=== PATIENT | female | born 1960 | race Caucasian/White ===

== ENCOUNTER 2023-04-16 15:04 | Emergency (ER) | payer OTHER ==
[~2023-04-16] VITALS: Ht 162.6 cm; Wt 71.2 kg
[~2023-04-16 15:04] MED LIST: FURO-572 PO
[2023-04-16 15:28] VITALS: BP 129/76; PULSE 97; RESP 18; TEMP 98.1; O2SAT 97
--- NOTE | 2023-04-16 15:53 | NUR ---
Pt placed in bed 8. evaluated pt at BS. MD performed neuro exam. He informed pt that he did not think she was having a stroke. No SOB noted. Pt able to speak in full complete sentences. EKG being performed at BS. No distress noted at this time.
[2023-04-16 16:32] LABS: BASOPHILS # (AUTO) 0.1 K/uL (0.00-0.22); BASOPHILS % (AUTO) 1.4 % (0.0-2.0); EOSINOPHILS # (AUTO) 0.2 K/uL (0-0.4); EOSINOPHILS % (AUTO) 2.4 % (0.0-4.0); HEMATOCRIT 40.9 % (36-48); HEMOGLOBIN 13.8 g/dL (12.0-16.0); LYMPHOCYTES # (AUTO) 1.8 K/uL (2.5-16.5); LYMPHOCYTES % (AUTO) 21.6 % (20.5-51.1); MEAN CORPUSCULAR HEMOGLOBIN 30 pg (27-31); MEAN CORPUSCULAR HGB CONC 34 g/dL (33-37); MEAN CORPUSCULAR VOLUME 89.3 fL (80-94); MONOCYTES # (AUTO) 0.9 K/uL (0.8-1.0); MONOCYTES % (AUTO) 10.4 % (1.7-9.3); NEUTROPHILS # (AUTO) 5.4 K/uL (1.8-7.7); NEUTROPHILS % (AUTO) 64.2 % (42.2-75.2); PLATELET COUNT (AUTO) 187 K/uL (140-450); RED BLOOD CELL COUNT(AUTO) 4.58 MIL/uL (4.20-5.40); RED CELL DISTRIBUTION WIDTH 13.9 % (11.6-13.7); WHITE BLOOD COUNT (AUTO) 8.3 K/uL (4.8-10.8)
[2023-04-16 16:50] LABS: ANION GAP 11.3 (8-16); CARBON DIOXIDE 27.5 mmol/L (21-32); POTASSIUM 3.8 mmol/L (3.5-5.1); TOTAL BILIRUBIN 0.6 mg/dL (0.0-1.0)
--- NOTE | 2023-04-16 17:00 | NUR ---
First contact with pt. Pt bibs for leg swelling. Pt has inconsistent stories and complaints, sometime complaining of wrist. Denies any truama. Labs drawn by lab. has seen pt. PT is a/o x 4, vss, no ss of acute distress, breathing equal and unlabored, speech clear, on monitor, family at bedside.
[2023-04-16] MEDS ORDERED: ASPIRIN 325 MG TAB PO ONE (17:10)
--- NOTE | 2023-04-16 17:41 | NUR ---
Pt left ama. Pt originally refused to take ASA but then accepted. Pt had already pulled off all equipment. I explained to the pt that she had an elevated trop level, pt understood but stated "I dont care. I will be fine if I didnt have a stroke." MD came to bedside and spoke with pt at length about dc. Pt is a/o x 4, vss, no ss of acute distress, breathing equal and unlabored, steady gait witnessed, left with daughter. Pt left afters signing AMA.
== END 2023-04-16 17:35 | disposition left against medical advice (07) ==
LOC: MED 15:04
DX: I21.4 Non-ST elevation (NSTEMI) myocardial infarction (principal); R42 Dizziness and giddiness; R60.0 Localized edema; M79.601 Pain in right arm; E11.9 Type 2 diabetes mellitus without complications; F17.210 Nicotine dependence, cigarettes, uncomplicated; F15.90 Other stimulant use, unspecified, uncomplicated; Z85.3 Personal history of malignant neoplasm of breast; Z79.899 Other long term (current) drug therapy; Z88.0 Allergy status to penicillin
CPT/HCPCS: 36415; 80053; 83880; 84484; 85025; 85379; 93005; 99284